=== PATIENT | male | born 1945 | race African-American/Black ===

== ENCOUNTER 2016-11-25 16:09 | Emergency (ER) | payer MEDICARE, MEDICAID ==
[~2016-11-25] VITALS: Ht 185.4 cm; Wt 97.0 kg
[~2016-11-25 16:09] MED LIST: AMIO100T4 PO; ASPI-1035 PO; ATROVASTATIN PO; DIGO0.25 PO; FISH PO; [UNRECOGNIZED DRUG - OTHER]; [UNRECOGNIZED DRUG - OTHER] PO
[2016-11-25] MEDS ORDERED: ACETAMINOPHEN 650MG/20.3ML UDC PO ONE (18:45)
[2016-11-25 20:15] VITALS: BP 137/80
== END 2016-11-25 20:18 | disposition home or self-care (01) ==
LOC: ER 18:17
DX: J02.9 Acute pharyngitis, unspecified (principal); E78.00 Pure hypercholesterolemia, unspecified; I11.9 Hypertensive heart disease without heart failure; I25.2 Old myocardial infarction; Z87.891 Personal history of nicotine dependence; Z79.82 Long term (current) use of aspirin; Z88.0 Allergy status to penicillin; Z86.73 Personal history of transient ischemic attack (TIA), and cerebral infarction without residual deficits
CPT/HCPCS: 99282

== ENCOUNTER 2019-09-11 10:47 | Inpatient (IN) | payer MEDICARE, MEDICAID ==
[~2019-09-11] VITALS: Ht 182.9 cm; Wt 92.5 kg
[~2019-09-11 10:47] MED LIST changes: -ASPI-1035 PO; +ASPI-1158 PO
[2019-09-11 12:44] LABS: BASOPHILS % 0.2 % (0.0-2.0); EOSINOPHILS % 0.3 % (0.0-5.0); HEMATOCRIT. 43.1 % (42.0-52.0); HEMOGLOBIN. 14.3 g/dL (14.0-18.0); LYMPHOCYTES % 10.2 % (20.0-50.0); MEAN CORPUSCULAR HEMOGLOBIN 27.7 pg (28.0-32.0); MEAN CORPUSCULAR VOLUME 83.2 fL (80.0-94.0); MEAN PLATELET VOLUME 8.3 fl (7.4-10.4); MONOCYTES % 11.6 % (2.0-8.0); NEUTROPHILS % 77.7 % (40.0-76.0); PLATELET 164 x1000/uL (130-400); RED BLOOD CELL COUNT 5.18 mill/uL (4.7-6.1); RED CELL DISTRIBUTION WIDTH 15.4 % (11.6-14.6)
[2019-09-11 12:46] LABS: CHLORIDE 95 mEq/L (98-107)
[2019-09-11 12:48] LABS: CLARITY URINE CLOUDY (CLEAR); COLOR URINE ORANGE (YELLOW); KETONES URINE TRACE (NEGATIVE); LEUKOCYTE ESTERASE URINE TRACE (NEGATIVE); NITRITE URINE NEGATIVE (NEGATIVE); OCCULT BLOOD URINE NEGATIVE (NEGATIVE); PROTEIN URINE 2+ (NEGATIVE); SPECIFIC GRAVITY URINE 1.026 (1.005-1.030)
[2019-09-11 13:16] LABS: *AMPHETAMINES SCREEN URINE NEGATIVE (NEGATIVE); *BARBITURATES SCREEN URINE NEGATIVE (NEGATIVE); *BENZODIAZEPINES SCREEN URINE NEGATIVE (NEGATIVE); *COCAINE SCREEN URINE NEGATIVE (NEGATIVE)
[2019-09-11 13:17] LABS: CANNABINOID URINE SCREEN NEGATIVE (NEGATIVE); METHADONE URINE SCREEN NEGATIVE (NEGATIVE); OPIATES URINE SCREEN PRESUMTIVE POSITIVE (NEGATIVE); PHENCYCLIDINE URINE SCREEN NEGATIVE (NEGATIVE)
[2019-09-11] MEDS ORDERED: ASPIRIN 81MG EC TABLET PO NR (15:15)
[2019-09-11] MEDS ORDERED: GUAIFENESIN 200MG/10ML SUGAR FREE UDC PO PRN (15:30)
[2019-09-11] MEDS ORDERED: IPRATROPIUM/ALBUTEROL 0.5-3(2.5)MG/3ML NEB HHN PRN (15:30)
[2019-09-11] MEDS ORDERED: ONDANSETRON HCL 4MG/2ML INJ IV PRN (15:30)
[2019-09-11] MEDS ORDERED: CLONIDINE 0.1MG TABLET PO PRN (15:30)
[2019-09-11 16:09] LABS: PHOSPHORUS 2.8 mg/dL (2.5-4.9)
[2019-09-11 17:15] VITALS: BP 130/79
[2019-09-11] MEDS: ENOXAPARIN 40MG/0.4ML SYR SUBCUT SCH (17:38)
[2019-09-11] MEDS: CARVEDILOL 6.25 MG TABLET PO SCH (17:38)
[2019-09-11] MEDS: FUROSEMIDE 100MG/10ML VIAL IVP SCH (18:54)
[2019-09-11 20:30] VITALS: BP 108/74
[2019-09-12 00:18] VITALS: BP 107/65
[2019-09-12 04:00] VITALS: BP 103/67
[2019-09-12 06:54] LABS: CHLORIDE 94 mEq/L (98-107)
[2019-09-12 07:02] LABS: BASOPHILS % 0.2 % (0.0-2.0); EOSINOPHILS % 0.6 % (0.0-5.0); HEMATOCRIT. 40.5 % (42.0-52.0); HEMOGLOBIN. 13.4 g/dL (14.0-18.0); LYMPHOCYTES % 17.7 % (20.0-50.0); MEAN CORPUSCULAR HEMOGLOBIN 27.6 pg (28.0-32.0); MEAN CORPUSCULAR VOLUME 83.2 fL (80.0-94.0); MEAN PLATELET VOLUME 8.8 fl (7.4-10.4); MONOCYTES % 9.4 % (2.0-8.0); NEUTROPHILS % 72.1 % (40.0-76.0); PLATELET 172 x1000/uL (130-400); RED BLOOD CELL COUNT 4.87 mill/uL (4.7-6.1); RED CELL DISTRIBUTION WIDTH 15.4 % (11.6-14.6)
[2019-09-12 07:03] LABS: LDL CHOLESTEROL 67 mg/dL (5-100)
[2019-09-12 07:05] LABS: HDL CHOLESTEROL 32 mg/dL (40-59)
[2019-09-12 08:09] VITALS: BP 105/69
[2019-09-12] MEDS: AMLODIPINE 2.5MG TABLET PO SCH (09:00)
[2019-09-12] MEDS: CARVEDILOL 6.25 MG TABLET PO SCH ×2 (09:00→17:00)
[2019-09-12] MEDS ORDERED: POTASSIUM CHLORIDE 20MEQ TABLET SR PO NR ×2 (09:15→18:00)
[2019-09-12] MEDS: POTASSIUM CHLORIDE 20MEQ TABLET SR PO SCH (09:27)
[2019-09-12] MEDS: FUROSEMIDE 100MG/10ML VIAL IVP SCH ×2 (09:29→17:43)
[2019-09-12 12:00] VITALS: BP 98/61
[2019-09-12 16:00] VITALS: BP 96/69
[2019-09-12] MEDS: ENOXAPARIN 40MG/0.4ML SYR SUBCUT SCH (17:42)
[2019-09-12 20:00] VITALS: BP 99/60
[2019-09-13] VITALS: BP 99/77
[2019-09-13 04:00] VITALS: BP 99/60
[2019-09-13 06:21] LABS: BASOPHILS % 0.5 % (0.0-2.0); EOSINOPHILS % 0.9 % (0.0-5.0); HEMATOCRIT. 41.4 % (42.0-52.0); LYMPHOCYTES % 21.3 % (20.0-50.0); MEAN CORPUSCULAR HEMOGLOBIN 27.9 pg (28.0-32.0); MEAN CORPUSCULAR VOLUME 82.8 fL (80.0-94.0); MEAN PLATELET VOLUME 8.2 fl (7.4-10.4); MONOCYTES % 10.8 % (2.0-8.0); NEUTROPHILS % 66.5 % (40.0-76.0); PLATELET 211 x1000/uL (130-400); RED CELL DISTRIBUTION WIDTH 15.4 % (11.6-14.6)
[2019-09-13] MEDS: FUROSEMIDE 100MG/10ML VIAL IVP SCH ×2 (06:32→17:16)
[2019-09-13 06:42] LABS: CHLORIDE 95 mEq/L (98-107)
[2019-09-13 08:00] VITALS: BP 94/50
[2019-09-13] MEDS: CARVEDILOL 6.25 MG TABLET PO SCH ×2 (09:00→16:35)
[2019-09-13] MEDS: ACETAMINOPHEN 325MG TABLET PO PRN ×2 (09:39→20:00)
[2019-09-13] MEDS: POTASSIUM CHLORIDE 20MEQ TABLET SR PO SCH (09:39)
[2019-09-13 12:00] VITALS: BP 101/68
[2019-09-13] MEDS: AMLODIPINE 2.5MG TABLET PO SCH (12:30)
[2019-09-13 16:00] VITALS: BP 95/69
[2019-09-13] MEDS: ENOXAPARIN 40MG/0.4ML SYR SUBCUT SCH (17:15)
[2019-09-13 20:29] VITALS: BP 94/54
[2019-09-14] VITALS: BP 95/63
[2019-09-14 04:00] VITALS: BP 99/65
[2019-09-14 06:17] LABS: CHLORIDE 94 mEq/L (98-107)
[2019-09-14 06:21] LABS: BASOPHILS % 0.6 % (0.0-2.0); EOSINOPHILS % 1.2 % (0.0-5.0); HEMATOCRIT. 40.7 % (42.0-52.0); HEMOGLOBIN. 13.7 g/dL (14.0-18.0); LYMPHOCYTES % 25.4 % (20.0-50.0); MEAN CORPUSCULAR HEMOGLOBIN 27.8 pg (28.0-32.0); MEAN CORPUSCULAR VOLUME 82.5 fL (80.0-94.0); MONOCYTES % 9.1 % (2.0-8.0); NEUTROPHILS % 63.7 % (40.0-76.0); PLATELET 227 x1000/uL (130-400); RED BLOOD CELL COUNT 4.93 mill/uL (4.7-6.1); RED CELL DISTRIBUTION WIDTH 15.3 % (11.6-14.6)
[2019-09-14] MEDS: FUROSEMIDE 100MG/10ML VIAL IVP SCH (06:23)
[2019-09-14] MEDS: POTASSIUM CHLORIDE 20MEQ TABLET SR PO SCH (07:57)
[2019-09-14] MEDS: AMLODIPINE 2.5MG TABLET PO SCH (07:58)
[2019-09-14 08:00] VITALS: BP 106/76
[2019-09-14] MEDS: CARVEDILOL 6.25 MG TABLET PO SCH ×2 (09:00→16:38)
[2019-09-14] MEDS: ACETAMINOPHEN 325MG TABLET PO PRN ×2 (10:11→21:30)
[2019-09-14 12:00] VITALS: BP 93/60
[2019-09-14 16:00] VITALS: BP 100/64
[2019-09-14] MEDS: FUROSEMIDE 40MG/4ML VIAL IV SCH (17:21)
[2019-09-14] MEDS: ENOXAPARIN 40MG/0.4ML SYR SUBCUT SCH (17:21)
[2019-09-14 20:14] VITALS: BP 103/67
[2019-09-15] VITALS (8 sets, daily range): BP systolic 92–109; BP diastolic 48–69
[2019-09-15 05:57] LABS: CHLORIDE 92 mEq/L (98-107)
[2019-09-15 06:05] LABS: BASOPHILS % 0.5 % (0.0-2.0); EOSINOPHILS % 0.8 % (0.0-5.0); HEMOGLOBIN. 13.9 g/dL (14.0-18.0); LYMPHOCYTES % 28.5 % (20.0-50.0); MEAN CORPUSCULAR HEMOGLOBIN 27.4 pg (28.0-32.0); MEAN CORPUSCULAR VOLUME 82.8 fL (80.0-94.0); MONOCYTES % 8.5 % (2.0-8.0); NEUTROPHILS % 61.7 % (40.0-76.0); PLATELET 260 x1000/uL (130-400); RED BLOOD CELL COUNT 5.07 mill/uL (4.7-6.1)
[2019-09-15] MEDS: FUROSEMIDE 40MG/4ML VIAL IV SCH ×2 (06:15→17:20)
[2019-09-15] MEDS: AMLODIPINE 2.5MG TABLET PO SCH (08:53)
[2019-09-15] MEDS: CARVEDILOL 6.25 MG TABLET PO SCH (08:53)
[2019-09-15] MEDS: POTASSIUM CHLORIDE 20MEQ TABLET SR PO SCH (08:54)
[2019-09-15] MEDS ORDERED: POTASSIUM CHLORIDE 20MEQ/PACKET PO NR (12:15)
[2019-09-15] MEDS: ENOXAPARIN 40MG/0.4ML SYR SUBCUT SCH (17:20)
[2019-09-15] MEDS: CARVEDILOL 3.125 MG TABLET PO SCH (20:31)
[2019-09-15] MEDS: ACETAMINOPHEN 325MG TABLET PO PRN (21:53)
[2019-09-16 04:00] VITALS: BP 105/71
[2019-09-16 06:21] LABS: CHLORIDE 93 mEq/L (98-107)
[2019-09-16 06:28] LABS: BASOPHILS % 0.7 % (0.0-2.0); EOSINOPHILS % 0.7 % (0.0-5.0); HEMATOCRIT. 40.6 % (42.0-52.0); HEMOGLOBIN. 13.5 g/dL (14.0-18.0); LYMPHOCYTES % 28.6 % (20.0-50.0); MEAN CORPUSCULAR HEMOGLOBIN 27.7 pg (28.0-32.0); MEAN CORPUSCULAR VOLUME 83.4 fL (80.0-94.0); MEAN PLATELET VOLUME 7.9 fl (7.4-10.4); MONOCYTES % 8.2 % (2.0-8.0); NEUTROPHILS % 61.8 % (40.0-76.0); PLATELET 284 x1000/uL (130-400); RED BLOOD CELL COUNT 4.87 mill/uL (4.7-6.1); RED CELL DISTRIBUTION WIDTH 15.4 % (11.6-14.6)
[2019-09-16] MEDS: FUROSEMIDE 40MG/4ML VIAL IV SCH (06:31)
[2019-09-16 08:06] VITALS: BP 98/63
[2019-09-16] MEDS: CARVEDILOL 3.125 MG TABLET PO SCH (09:00)
[2019-09-16] MEDS: AMLODIPINE 2.5MG TABLET PO SCH (09:00)
[2019-09-16] MEDS: POTASSIUM CHLORIDE 20MEQ TABLET SR PO SCH (09:10)
[2019-09-16] MEDS ORDERED: POTA20TA82 PO (10:33)
[2019-09-16] MEDS ORDERED: AMIO100T4 MT (10:33)
[2019-09-16] MEDS ORDERED: COR3 PO (10:33)
[2019-09-16] MEDS ORDERED: FURO40TA5 PO (10:33)
[2019-09-16 12:10] VITALS: BP 98/63
[2019-09-16 12:23] VITALS: BP 102/71
[2019-09-16] MEDS ORDERED: FUROSEMIDE 40MG TABLET PO SCH (21:00)
== END 2019-09-16 12:40 | disposition home or self-care (01) | DRG 291 ==
LOC: ER 10:47 → EDBEDREQ 14:47 → ENRESERV 15:49 → 6WST 17:04
PROVIDERS: ADMIT Internal Medicine; ATTEND Internal Medicine
DX: I11.0 Hypertensive heart disease with heart failure (principal); J96.00 Acute respiratory failure, unspecified whether with hypoxia or hypercapnia; J18.9 Pneumonia, unspecified organism; J44.0 Chronic obstructive pulmonary disease with (acute) lower respiratory infection; R04.2 Hemoptysis; I50.23 Acute on chronic systolic (congestive) heart failure; I42.0 Dilated cardiomyopathy; E87.6 Hypokalemia; E78.00 Pure hypercholesterolemia, unspecified; I34.0 Nonrheumatic mitral (valve) insufficiency; E05.90 Thyrotoxicosis, unspecified without thyrotoxic crisis or storm; R07.89 Other chest pain; E78.5 Hyperlipidemia, unspecified; I45.10 Unspecified right bundle-branch block; F17.220 Nicotine dependence, chewing tobacco, uncomplicated; T50.2X5A Adverse effect of carbonic-anhydrase inhibitors, benzothiadiazides and other diuretics, initial encounter; Z59.0 Homelessness; Z95.810 Presence of automatic (implantable) cardiac defibrillator; Z88.0 Allergy status to penicillin; Z79.82 Long term (current) use of aspirin; Z79.899 Other long term (current) drug therapy; I25.2 Old myocardial infarction; Y92.89 Other specified places as the place of occurrence of the external cause; Z86.73 Personal history of transient ischemic attack (TIA), and cerebral infarction without residual deficits
CPT/HCPCS: 36415; 71045; 71250; 80048; 80053; 80061; 80305; 81003; 82140; 82962; 83735; 83880; 84100; 84484; 85025; 87070; 87077; 87186; 93005; 93306; 93970; J1650; J1940

== ENCOUNTER 2019-10-05 10:36 | Inpatient (IN) | payer MEDICARE, MEDICAID ==
[~2019-10-05] VITALS: Ht 185.4 cm; Wt 94.8 kg
[~2019-10-05 10:36] MED LIST changes: +AMIO100T4 MT; -AMIO100T4 PO; +COR3 PO; -DIGO0.25 PO; +FURO40TA5 PO; +POTA20TA82 PO; -[UNRECOGNIZED DRUG - OTHER] PO
[2019-10-05] MEDS ORDERED: ASPIRIN 81MG TABLET PO ONE (11:00)
[2019-10-05 12:19] LABS: BASOPHILS % 0.8 % (0.0-2.0); EOSINOPHILS % 0.6 % (0.0-5.0); HEMATOCRIT. 41.3 % (42.0-52.0); HEMOGLOBIN. 13.7 g/dL (14.0-18.0); LYMPHOCYTES % 46.8 % (20.0-50.0); MEAN CORPUSCULAR HEMOGLOBIN 27.5 pg (28.0-32.0); MEAN CORPUSCULAR VOLUME 83.1 fL (80.0-94.0); MEAN PLATELET VOLUME 8.2 fl (7.4-10.4); MONOCYTES % 11.1 % (2.0-8.0); NEUTROPHILS % 40.7 % (40.0-76.0); PLATELET 136 x1000/uL (130-400); RED BLOOD CELL COUNT 4.97 mill/uL (4.7-6.1); RED CELL DISTRIBUTION WIDTH 16.7 % (11.6-14.6)
[2019-10-05 12:24] LABS: INR 1.1; PARTIAL THROMBOPLASTIN TIME 27.5 sec (23.4-31.0); PROTHROMBIN TIME 11.4 sec (9.6-11.0)
[2019-10-05 12:26] LABS: CHLORIDE 103 mEq/L (98-107)
[2019-10-05] MEDS ORDERED: ENOXAPARIN 100MG/ML SYR SUBCUT ONE (14:45)
[2019-10-05] MEDS ORDERED: NITROGLYCERIN 0.4MG TABLET SL SL PRN (16:15)
[2019-10-05] MEDS ORDERED: ACETAMINOPHEN 325MG TABLET PO PRN (16:15)
[2019-10-05] MEDS ORDERED: ONDANSETRON HCL 4MG/2ML INJ IV PRN (16:15)
[2019-10-05 21:15] VITALS: BP 104/71
[2019-10-05 22:00] VITALS: BP 97/60
[2019-10-06] VITALS (12 sets, daily range): BP systolic 90–141; BP diastolic 58–69
[2019-10-06] MEDS: ASPIRIN 81MG TABLET PO SCH (08:50)
[2019-10-06] MEDS: ENOXAPARIN 40MG/0.4ML SYR SUBCUT SCH (08:50)
[2019-10-06] MEDS: AMIODARONE HCL 200 MG TABLET PO SCH ×2 (10:38→21:50)
[2019-10-06] MEDS: FUROSEMIDE 40MG/4ML VIAL IVP SCH (10:38)
[2019-10-06] MEDS ORDERED: ATORVASTATIN CALCIUM 10MG TABLET PO SCH (21:00)
[2019-10-06] MEDS: CARVEDILOL 3.125 MG TABLET PO SCH (21:00)
[2019-10-07] VITALS (8 sets, daily range): BP systolic 91–127; BP diastolic 53–65
[2019-10-07 07:15] LABS: BASOPHILS % 0.6 % (0.0-2.0); EOSINOPHILS % 0.5 % (0.0-5.0); HEMATOCRIT. 38.3 % (42.0-52.0); HEMOGLOBIN. 12.8 g/dL (14.0-18.0); LYMPHOCYTES % 43.3 % (20.0-50.0); MEAN CORPUSCULAR HEMOGLOBIN 27.3 pg (28.0-32.0); MEAN CORPUSCULAR VOLUME 81.9 fL (80.0-94.0); MEAN PLATELET VOLUME 8.2 fl (7.4-10.4); MONOCYTES % 11.4 % (2.0-8.0); NEUTROPHILS % 44.2 % (40.0-76.0); PLATELET 114 x1000/uL (130-400); RED BLOOD CELL COUNT 4.68 mill/uL (4.7-6.1); RED CELL DISTRIBUTION WIDTH 16.1 % (11.6-14.6)
[2019-10-07 07:25] LABS: CHLORIDE 104 mEq/L (98-107)
[2019-10-07] MEDS: CARVEDILOL 3.125 MG TABLET PO SCH (08:25)
[2019-10-07] MEDS: ASPIRIN 81MG TABLET PO SCH (08:25)
[2019-10-07] MEDS: AMIODARONE HCL 200 MG TABLET PO SCH (08:26)
[2019-10-07] MEDS: ENOXAPARIN 40MG/0.4ML SYR SUBCUT SCH (08:26)
[2019-10-07] MEDS ORDERED: AMLODIPINE 2.5MG TABLET PO SCH (09:00)
[2019-10-07] MEDS: FUROSEMIDE 40MG/4ML VIAL IVP SCH (10:00)
[2019-10-07] MEDS ORDERED: AMLO2.5T45 PO (11:59)
[2019-10-07] MEDS ORDERED: ATOR10TA PO (11:59)
[2019-10-07] MEDS ORDERED: AMI2 PO (11:59)
== END 2019-10-07 13:11 | disposition home or self-care (01) | DRG 293 ==
LOC: ER 10:36 → ENRESERV 19:21 → 3WST 20:57
PROVIDERS: ADMIT Internal Medicine; ATTEND Internal Medicine
DX: I11.0 Hypertensive heart disease with heart failure (principal); I50.23 Acute on chronic systolic (congestive) heart failure; I42.0 Dilated cardiomyopathy; I34.0 Nonrheumatic mitral (valve) insufficiency; R79.89 Other specified abnormal findings of blood chemistry; J44.9 Chronic obstructive pulmonary disease, unspecified; E78.5 Hyperlipidemia, unspecified; R07.9 Chest pain, unspecified; Z95.810 Presence of automatic (implantable) cardiac defibrillator; Z86.73 Personal history of transient ischemic attack (TIA), and cerebral infarction without residual deficits; Z82.3 Family history of stroke; Z59.0 Homelessness; Z82.49 Family history of ischemic heart disease and other diseases of the circulatory system; Z88.0 Allergy status to penicillin; Z79.899 Other long term (current) drug therapy; Z79.82 Long term (current) use of aspirin
CPT/HCPCS: 36415; 71045; 80048; 80053; 83735; 83880; 84484; 85025; 93005; 99291; J1650; J1940

== ENCOUNTER 2020-09-12 16:33 | Emergency (ER) | payer MEDICARE, MEDICAID ==
[~2020-09-12] VITALS: Ht 182.9 cm; Wt 93.6 kg
[~2020-09-12 16:33] MED LIST changes: +AMI2 PO; -AMIO100T4 MT; +AMLO2.5T45 PO; -ASPI-1158 PO; +ASPI-1406 PO; +ATOR10TA PO; -ATROVASTATIN PO
[2020-09-12] MEDS ORDERED: MAGNESIUM/ALUMINUM HYDROXIDE/SIMETHICONE 30ML UDC PO STA (17:49)
[2020-09-12 19:08] VITALS: BP 92/50
[2020-09-12 19:18] LABS: BASOPHILS % 0.7 % (0.0-2.0); EOSINOPHILS % 0.8 % (0.0-5.0); HEMATOCRIT. 35.3 % (42.0-52.0); HEMOGLOBIN. 11.4 g/dL (14.0-18.0); LYMPHOCYTES % 35.6 % (20.0-50.0); MEAN CORPUSCULAR HEMOGLOBIN 27.3 pg (28.0-32.0); MEAN CORPUSCULAR VOLUME 84.6 fL (80.0-94.0); MEAN PLATELET VOLUME 8.8 fl (7.4-10.4); MONOCYTES % 12.9 % (2.0-8.0); PLATELET 129 x1000/uL (130-400); RED BLOOD CELL COUNT 4.17 mill/uL (4.7-6.1); RED CELL DISTRIBUTION WIDTH 16.7 % (11.6-14.6)
[2020-09-12 19:21] LABS: CHLORIDE 109 mEq/L (98-107)
== END 2020-09-12 20:09 | disposition left against medical advice (07) ==
LOC: ER 16:33
DX: R10.33 Periumbilical pain (principal); I48.91 Unspecified atrial fibrillation; Z86.73 Personal history of transient ischemic attack (TIA), and cerebral infarction without residual deficits; Z95.0 Presence of cardiac pacemaker; Z79.82 Long term (current) use of aspirin; Z88.0 Allergy status to penicillin; Z79.899 Other long term (current) drug therapy
CPT/HCPCS: 36415; 80053; 84484; 85025; 93005; 99284

== ENCOUNTER 2020-10-07 16:59 | Emergency (ER) | payer MEDICARE, MEDICAID ==
[~2020-10-07] VITALS: Ht 172.7 cm; Wt 78.0 kg
[2020-10-07 19:23] LABS: HEMATOCRIT. 35.6 % (42.0-52.0); HEMOGLOBIN. 11.6 g/dL (14.0-18.0); MEAN CORPUSCULAR HEMOGLOBIN 26.9 pg (28.0-32.0); MEAN CORPUSCULAR VOLUME 82.4 fL (80.0-94.0); MEAN PLATELET VOLUME 8.7 fl (7.4-10.4); PLATELET 157 x1000/uL (130-400); RED BLOOD CELL COUNT 4.31 mill/uL (4.7-6.1); RED CELL DISTRIBUTION WIDTH 17.1 % (11.6-14.6)
[2020-10-07 19:30] LABS: CHLORIDE 108 mEq/L (98-107)
[2020-10-07 19:31] LABS: INR 1.2; PARTIAL THROMBOPLASTIN TIME 27.9 sec (23.4-31.0); PROTHROMBIN TIME 13.1 sec (9.6-11.0)
[2020-10-07 19:45] VITALS: BP 99/64
[2020-10-07 19:45] LABS: PLATELET ESTIMATE NORMAL
== END 2020-10-07 20:00 | disposition left against medical advice (07) ==
LOC: ER 16:59
DX: R60.0 Localized edema (principal); I11.0 Hypertensive heart disease with heart failure; I50.9 Heart failure, unspecified; I48.91 Unspecified atrial fibrillation; M19.90 Unspecified osteoarthritis, unspecified site; K21.9 Gastro-esophageal reflux disease without esophagitis; Z86.73 Personal history of transient ischemic attack (TIA), and cerebral infarction without residual deficits; Z79.82 Long term (current) use of aspirin; Z79.01 Long term (current) use of anticoagulants; Z88.0 Allergy status to penicillin; T50.B95A Adverse effect of other viral vaccines, initial encounter; Y92.018 Other place in single-family (private) house as the place of occurrence of the external cause
CPT/HCPCS: 36415; 71045; 80053; 83880; 84484; 85025; 93005; 99285

== ENCOUNTER 2021-09-30 04:41 | Inpatient (IN) | payer MEDICARE, MEDICAID ==
[~2021-09-30] VITALS: Ht 185.4 cm; Wt 97.5 kg
[2021-09-30] MEDS ORDERED: ACETAMINOPHEN 325MG TABLET PO STA (05:45)
[2021-09-30 06:51] LABS: CHLORIDE 107 mEq/L (98-107)
[2021-09-30 06:57] LABS: CLARITY URINE CLEAR (CLEAR); COLOR URINE YELLOW (YELLOW); KETONES URINE NEGATIVE (NEGATIVE); LEUKOCYTE ESTERASE URINE 1+ (NEGATIVE); NITRITE URINE NEGATIVE (NEGATIVE); OCCULT BLOOD URINE NEGATIVE (NEGATIVE); PROTEIN URINE NEGATIVE (NEGATIVE); SPECIFIC GRAVITY URINE 1.024 (1.005-1.030)
[2021-09-30] MEDS ORDERED: IBUPROFEN 600MG TABLET PO NR (08:15)
[2021-09-30 08:32] LABS: BASOPHILS % 0.4 % (0.0-2.0); EOSINOPHILS % 0.1 % (0.0-5.0); HEMATOCRIT. 38.6 % (42.0-52.0); HEMOGLOBIN. 12.8 g/dL (14.0-18.0); MEAN CORPUSCULAR HEMOGLOBIN 29.2 pg (28.0-32.0); MEAN CORPUSCULAR VOLUME 87.8 fL (80.0-94.0); MEAN PLATELET VOLUME 7.4 fl (7.4-10.4); MONOCYTES % 9.7 % (2.0-8.0); NEUTROPHILS % 78.8 % (40.0-76.0); PLATELET 151 x1000/uL (130-400); RED CELL DISTRIBUTION WIDTH 14.8 % (11.6-14.6)
[2021-09-30] MEDS ORDERED: VANCOMYCIN 1G PREMIX 200 ML IV ONE (09:15)
[2021-09-30] MEDS ORDERED: SODIUM CHLORIDE 0.9% 1,000 ML IV ONE (09:15)
[2021-09-30] MEDS ORDERED: PIPERACILLIN/TAZ 3.375G PREMIX 50 ML IV ONE (09:15)
[2021-09-30] MEDS ORDERED: VANCOMYCIN 1GM PMX (XELLIA) 200 ML IV SCH (09:30)
[2021-09-30 09:33] LABS: ETHANOL BLOOD < 10 mg/dL
[2021-09-30 12:00] VITALS: BP 96/46
[2021-09-30] MEDS ORDERED: SODIUM CHLORIDE 0.9% 500 ML IV ONE (12:40)
[2021-09-30] MEDS ORDERED: CEFTRIAXONE 1 G PREMIX 50 ML IV NR (12:45)
[2021-09-30] MEDS: MIDODRINE HCL 5MG TABLET PO SCH ×2 (13:10→18:58)
[2021-09-30 15:38] VITALS: BP 96/46
[2021-09-30 16:00] VITALS: BP 95/49
[2021-09-30 20:00] VITALS: BP 103/64
[2021-10-01 07:35] LABS: BASOPHILS % 0.2 % (0.0-2.0); EOSINOPHILS % 0.3 % (0.0-5.0); HEMATOCRIT. 35.5 % (42.0-52.0); HEMOGLOBIN. 11.8 g/dL (14.0-18.0); LYMPHOCYTES % 9.3 % (20.0-50.0); MEAN CORPUSCULAR HEMOGLOBIN 29.3 pg (28.0-32.0); MEAN PLATELET VOLUME 7.6 fl (7.4-10.4); MONOCYTES % 10.1 % (2.0-8.0); NEUTROPHILS % 80.1 % (40.0-76.0); PLATELET 146 x1000/uL (130-400); RED BLOOD CELL COUNT 4.04 mill/uL (4.7-6.1); RED CELL DISTRIBUTION WIDTH 15.5 % (11.6-14.6)
[2021-10-01 07:51] LABS: CHLORIDE 109 mEq/L (98-107)
[2021-10-01 08:00] VITALS: BP 95/57
[2021-10-01] MEDS ORDERED: CEFTRIAXONE 1,000 MG in DEXTROSE 5% WATER 50 ML IV SCH (09:00)
[2021-10-01] MEDS: CEFTRIAXONE 1,000 MG in DEXTROSE 5% WATER 50 ML IV SCH (09:00)
[2021-10-01] MEDS: MIDODRINE HCL 5MG TABLET PO SCH ×3 (09:00→17:31)
[2021-10-01] MEDS ORDERED: IOHEXOL-350 100 ML BOTTLE ONE (09:53)
[2021-10-01 10:53] LABS: METHADONE URINE SCREEN NEGATIVE (NEGATIVE)
[2021-10-01 10:54] LABS: *AMPHETAMINES SCREEN URINE NEGATIVE (NEGATIVE); *BARBITURATES SCREEN URINE NEGATIVE (NEGATIVE); *BENZODIAZEPINES SCREEN URINE NEGATIVE (NEGATIVE); *COCAINE SCREEN URINE PRESUMTIVE POSITIVE (NEGATIVE)
[2021-10-01 10:55] LABS: CANNABINOID URINE SCREEN NEGATIVE (NEGATIVE); OPIATES URINE SCREEN NEGATIVE (NEGATIVE); PHENCYCLIDINE URINE SCREEN NEGATIVE (NEGATIVE)
[2021-10-01 12:00] VITALS: BP 101/56
[2021-10-01] MEDS: ACETAMINOPHEN 325MG TABLET PO PRN ×2 (12:12→20:10)
[2021-10-01] MEDS: ASPIRIN 81MG TABLET PO SCH (12:12)
[2021-10-01 16:00] VITALS: BP 93/46
[2021-10-01 20:00] VITALS: BP 110/60
[2021-10-02] VITALS: BP 97/32
[2021-10-02 04:00] VITALS: BP 89/46
[2021-10-02 08:00] VITALS: BP 99/49
[2021-10-02 08:11] LABS: BASOPHILS % 0.2 % (0.0-2.0); EOSINOPHILS % 0.9 % (0.0-5.0); HEMATOCRIT. 37.9 % (42.0-52.0); HEMOGLOBIN. 12.3 g/dL (14.0-18.0); LYMPHOCYTES % 10.9 % (20.0-50.0); MEAN CORPUSCULAR HEMOGLOBIN 28.8 pg (28.0-32.0); MEAN CORPUSCULAR VOLUME 88.5 fL (80.0-94.0); MEAN PLATELET VOLUME 7.8 fl (7.4-10.4); MONOCYTES % 10.5 % (2.0-8.0); NEUTROPHILS % 77.5 % (40.0-76.0); PLATELET 143 x1000/uL (130-400); RED BLOOD CELL COUNT 4.28 mill/uL (4.7-6.1); RED CELL DISTRIBUTION WIDTH 15.6 % (11.6-14.6)
[2021-10-02 08:24] LABS: CHLORIDE 111 mEq/L (98-107)
[2021-10-02] MEDS: ASPIRIN 81MG TABLET PO SCH (09:27)
[2021-10-02] MEDS: MIDODRINE HCL 5MG TABLET PO SCH ×3 (09:31→16:35)
[2021-10-02] MEDS: CEFTRIAXONE 1,000 MG in DEXTROSE 5% WATER 50 ML IV SCH (10:34)
[2021-10-02] MEDS: ACETAMINOPHEN 325MG TABLET PO PRN (10:59)
[2021-10-02 12:00] VITALS: BP 106/53
[2021-10-02 16:00] VITALS: BP 115/74
[2021-10-02 20:00] VITALS: BP 95/51
[2021-10-03] VITALS: BP 100/48
[2021-10-03] MEDS: ACETAMINOPHEN 325MG TABLET PO PRN ×2 (03:58→23:41)
[2021-10-03 04:00] VITALS: BP 129/69
[2021-10-03 06:03] LABS: BASOPHILS % 0.5 % (0.0-2.0); EOSINOPHILS % 1.3 % (0.0-5.0); HEMATOCRIT. 36.3 % (42.0-52.0); HEMOGLOBIN. 11.9 g/dL (14.0-18.0); LYMPHOCYTES % 19.6 % (20.0-50.0); MEAN CORPUSCULAR HEMOGLOBIN 28.8 pg (28.0-32.0); MEAN CORPUSCULAR VOLUME 87.5 fL (80.0-94.0); MEAN PLATELET VOLUME 7.8 fl (7.4-10.4); MONOCYTES % 11.7 % (2.0-8.0); NEUTROPHILS % 66.9 % (40.0-76.0); PLATELET 146 x1000/uL (130-400); RED BLOOD CELL COUNT 4.15 mill/uL (4.7-6.1); RED CELL DISTRIBUTION WIDTH 15.5 % (11.6-14.6)
[2021-10-03 07:17] LABS: CHLORIDE 109 mEq/L (98-107)
[2021-10-03 07:51] VITALS: BP 115/69
[2021-10-03] MEDS: CEFTRIAXONE 1,000 MG in DEXTROSE 5% WATER 50 ML IV SCH (09:12)
[2021-10-03] MEDS: MIDODRINE HCL 5MG TABLET PO SCH ×3 (09:13→16:31)
[2021-10-03] MEDS: ASPIRIN 81MG TABLET PO SCH (09:13)
[2021-10-03 16:00] VITALS: BP 104/70
[2021-10-03] MEDS: FUROSEMIDE 40MG/4ML VIAL IVP SCH ×2 (16:31→18:21)
[2021-10-03] MEDS: APIXABAN 5 MG TABLET PO SCH (16:31)
[2021-10-03 20:00] VITALS: BP 115/73
[2021-10-04] VITALS: BP 120/70
[2021-10-04 04:00] VITALS: BP 118/68
[2021-10-04 05:49] LABS: BASOPHILS % 0.3 % (0.0-2.0); HEMOGLOBIN. 13.6 g/dL (14.0-18.0); LYMPHOCYTES % 27.5 % (20.0-50.0); MEAN CORPUSCULAR HEMOGLOBIN 28.9 pg (28.0-32.0); MEAN PLATELET VOLUME 8.1 fl (7.4-10.4); MONOCYTES % 13.6 % (2.0-8.0); NEUTROPHILS % 57.6 % (40.0-76.0); PLATELET 170 x1000/uL (130-400); RED BLOOD CELL COUNT 4.71 mill/uL (4.7-6.1); RED CELL DISTRIBUTION WIDTH 15.1 % (11.6-14.6)
[2021-10-04 06:06] LABS: CHLORIDE 105 mEq/L (98-107)
[2021-10-04] MEDS: FUROSEMIDE 40MG/4ML VIAL IVP SCH (06:26)
[2021-10-04 08:00] VITALS: BP 96/48
[2021-10-04] MEDS: APIXABAN 5 MG TABLET PO SCH (09:35)
[2021-10-04] MEDS: ASPIRIN 81MG TABLET PO SCH (09:35)
[2021-10-04] MEDS: CEFTRIAXONE 1,000 MG in DEXTROSE 5% WATER 50 ML IV SCH (09:35)
[2021-10-04] MEDS: MIDODRINE HCL 5MG TABLET PO SCH ×2 (09:36→12:51)
[2021-10-04] MEDS ORDERED: APIX5TAB PO (11:21)
[2021-10-04 12:00] VITALS: BP 100/74
[2021-10-04 12:58] VITALS: BP 100/74
== END 2021-10-04 15:29 | disposition home health service (06) | DRG 871 ==
LOC: ER 05:04 → 4WST 10:30 → ENRESERV 11:31
PROVIDERS: ADMIT Internal Medicine; ATTEND Internal Medicine
DX: A41.9 Sepsis, unspecified organism (principal); N17.0 Acute kidney failure with tubular necrosis; I50.43 Acute on chronic combined systolic (congestive) and diastolic (congestive) heart failure; I26.99 Other pulmonary embolism without acute cor pulmonale; N39.0 Urinary tract infection, site not specified; I42.9 Cardiomyopathy, unspecified; J98.11 Atelectasis; N18.9 Chronic kidney disease, unspecified; N43.3 Hydrocele, unspecified; N50.3 Cyst of epididymis; K21.9 Gastro-esophageal reflux disease without esophagitis; N44.2 Benign cyst of testis; D64.9 Anemia, unspecified; I45.10 Unspecified right bundle-branch block; M19.90 Unspecified osteoarthritis, unspecified site; I86.1 Scrotal varices; I34.0 Nonrheumatic mitral (valve) insufficiency; I48.91 Unspecified atrial fibrillation; F14.10 Cocaine abuse, uncomplicated; F17.210 Nicotine dependence, cigarettes, uncomplicated; I69.322 Dysarthria following cerebral infarction; I69.320 Aphasia following cerebral infarction; Z59.02 Unsheltered homelessness; Z88.0 Allergy status to penicillin; Z79.01 Long term (current) use of anticoagulants; Z79.899 Other long term (current) drug therapy; Z79.82 Long term (current) use of aspirin; Z71.6 Tobacco abuse counseling; Z95.810 Presence of automatic (implantable) cardiac defibrillator; Z87.440 Personal history of urinary (tract) infections; Z86.718 Personal history of other venous thrombosis and embolism
CPT/HCPCS: 36415; 71045; 71275; 76870; 80048; 80053; 80305; 80320; 81003; 83605; 83735; 83880; 84145; 84484; 85025; 85379; 93005; 93306; 93970; 93976; 99285; C1893; J0696; J1940; J2543; J3370; J7030; J7060; Q9967; G0480

== ENCOUNTER 2021-10-23 14:55 | Emergency (ER) | payer MEDICARE, MEDICAID ==
[~2021-10-23] VITALS: Ht 185.4 cm; Wt 97.0 kg
[~2021-10-23 14:55] MED LIST changes: -AMLO2.5T45 PO; +APIX5TAB PO; -COR3 PO; -[UNRECOGNIZED DRUG - OTHER]
[2021-10-23 17:41] LABS: BASOPHILS % 0.5 % (0.0-2.0); EOSINOPHILS % 0.5 % (0.0-5.0); HEMATOCRIT. 41.7 % (42.0-52.0); HEMOGLOBIN. 13.6 g/dL (14.0-18.0); LYMPHOCYTES % 39.5 % (20.0-50.0); MEAN CORPUSCULAR HEMOGLOBIN 28.9 pg (28.0-32.0); MEAN CORPUSCULAR VOLUME 88.6 fL (80.0-94.0); MEAN PLATELET VOLUME 7.7 fl (7.4-10.4); MONOCYTES % 12.5 % (2.0-8.0); PLATELET 165 x1000/uL (130-400); RED CELL DISTRIBUTION WIDTH 15.7 % (11.6-14.6)
[2021-10-23 17:43] LABS: CLARITY URINE CLEAR (CLEAR); COLOR URINE YELLOW (YELLOW); KETONES URINE NEGATIVE (NEGATIVE); LEUKOCYTE ESTERASE URINE 1+ (NEGATIVE); NITRITE URINE NEGATIVE (NEGATIVE); OCCULT BLOOD URINE NEGATIVE (NEGATIVE); PROTEIN URINE NEGATIVE (NEGATIVE); SPECIFIC GRAVITY URINE 1.015 (1.005-1.030); UROBILINOGEN URINE 0.2 E.U./dL (0.2-1.0)
[2021-10-23 17:45] LABS: CHLORIDE 106 mEq/L (98-107)
[2021-10-23] MEDS ORDERED: SODIUM CHLORIDE 0.9% 1,000 ML IV ONE (20:00)
[2021-10-23 23:30] VITALS: BP 107/56
[2021-10-23] MEDS ORDERED: CLOT15CR5 TP (23:30)
[2021-10-23] MEDS ORDERED: NITR-87 MT (23:32)
== END 2021-10-23 23:43 | disposition home or self-care (01) ==
LOC: ER 14:55
DX: N39.0 Urinary tract infection, site not specified (principal); N48.1 Balanitis; N17.9 Acute kidney failure, unspecified; I48.91 Unspecified atrial fibrillation; D64.9 Anemia, unspecified; I50.9 Heart failure, unspecified; K59.00 Constipation, unspecified; K21.9 Gastro-esophageal reflux disease without esophagitis; Z87.440 Personal history of urinary (tract) infections; Z79.899 Other long term (current) drug therapy; Z88.0 Allergy status to penicillin
CPT/HCPCS: 36415; 80053; 81003; 82962; 85025; 96360; 99283

== ENCOUNTER 2021-11-18 09:17 | Emergency (ER) | payer MEDICARE, MEDICAID ==
[~2021-11-18] VITALS: Ht 185.4 cm; Wt 100.0 kg
[~2021-11-18 09:17] MED LIST changes: +CLOT15CR5 TP; +NITR-87 MT; +POTA-204 PO; -POTA20TA82 PO
[2021-11-18] MEDS ORDERED: HYDROCODONE/ACETAMINOPHEN 5/325MG TABLET PO ONE (10:00)
[2021-11-18 10:24] LABS: BASOPHILS % 0.7 % (0.0-2.0); EOSINOPHILS % 0.2 % (0.0-5.0); HEMATOCRIT. 44.8 % (42.0-52.0); HEMOGLOBIN. 14.7 g/dL (14.0-18.0); LYMPHOCYTES % 18.3 % (20.0-50.0); MEAN CORPUSCULAR HEMOGLOBIN 28.5 pg (28.0-32.0); MEAN CORPUSCULAR VOLUME 87.2 fL (80.0-94.0); MEAN PLATELET VOLUME 7.8 fl (7.4-10.4); MONOCYTES % 10.9 % (2.0-8.0); NEUTROPHILS % 69.9 % (40.0-76.0); PLATELET 171 x1000/uL (130-400); RED BLOOD CELL COUNT 5.14 mill/uL (4.7-6.1); RED CELL DISTRIBUTION WIDTH 15.4 % (11.6-14.6)
[2021-11-18 10:26] VITALS: BP 104/61
[2021-11-18 10:28] LABS: CHLORIDE 106 mEq/L (98-107)
[2021-11-18] MEDS ORDERED: LIDOCAINE HCL/PF 1% 10 MG/ML 5ML VIAL INFIL ONE (11:45)
[2021-11-18] MEDS ORDERED: LIDOCAINE HCL/EPINEPHRINE 1%-EPI 1:100,000 20 ML VIAL INFIL ONE (11:45)
[2021-11-18] MEDS ORDERED: HYDR-4001 MT (12:37)
== END 2021-11-18 12:48 | disposition home or self-care (01) ==
LOC: ER 09:17
DX: M00.9 Pyogenic arthritis, unspecified (principal); I11.0 Hypertensive heart disease with heart failure; I50.9 Heart failure, unspecified; Z88.0 Allergy status to penicillin; Z79.82 Long term (current) use of aspirin; Z86.73 Personal history of transient ischemic attack (TIA), and cerebral infarction without residual deficits; Z98.890 Other specified postprocedural states
CPT/HCPCS: 20605; 36415; 73100; 80053; 85025; 86140; 87040; 87070; 87205; 89050; 89060; 99285; J3490

== ENCOUNTER 2022-01-09 05:10 | Emergency (ER) | payer MEDICARE, MEDICAID ==
[~2022-01-09] VITALS: Ht 185.4 cm; Wt 99.0 kg
[~2022-01-09 05:10] MED LIST changes: +HYDR-4001 MT
[2022-01-09 06:41] LABS: CHLORIDE 103 mEq/L (98-107)
[2022-01-09 06:50] LABS: HEMATOCRIT. 39.1 % (42.0-52.0); MEAN CORPUSCULAR VOLUME 86.9 fL (80.0-94.0); MEAN PLATELET VOLUME 7.8 fl (7.4-10.4); PLATELET 137 x1000/uL (130-400); RED BLOOD CELL COUNT 4.51 mill/uL (4.7-6.1); RED CELL DISTRIBUTION WIDTH 16.2 % (11.6-14.6)
[2022-01-09] MEDS ORDERED: DIAZEPAM 2 MG TABLET PO ONE (07:15)
[2022-01-09 07:25] LABS: PLATELET ESTIMATE NORMAL
[2022-01-09 07:53] LABS: CLARITY URINE CLEAR (CLEAR); COLOR URINE YELLOW (YELLOW); KETONES URINE TRACE (NEGATIVE); LEUKOCYTE ESTERASE URINE TRACE (NEGATIVE); NITRITE URINE NEGATIVE (NEGATIVE); OCCULT BLOOD URINE NEGATIVE (NEGATIVE); PROTEIN URINE TRACE (NEGATIVE); SPECIFIC GRAVITY URINE 1.026 (1.005-1.030)
[2022-01-09] MEDS ORDERED: POTASSIUM CHLORIDE 20MEQ TABLET SR PO ONE (08:30)
[2022-01-09] MEDS ORDERED: ACET-3163 MT (09:07)
[2022-01-09] MEDS ORDERED: NITR-87 MT (09:07)
[2022-01-09 09:22] VITALS: BP 120/69
== END 2022-01-09 09:22 | disposition home or self-care (01) ==
LOC: ER 05:10
DX: N39.0 Urinary tract infection, site not specified (principal); K76.89 Other specified diseases of liver; N28.9 Disorder of kidney and ureter, unspecified; I11.0 Hypertensive heart disease with heart failure; I50.9 Heart failure, unspecified; I25.10 Atherosclerotic heart disease of native coronary artery without angina pectoris; Z86.73 Personal history of transient ischemic attack (TIA), and cerebral infarction without residual deficits; Z79.82 Long term (current) use of aspirin; Z88.0 Allergy status to penicillin
CPT/HCPCS: 36415; 74176; 80053; 81003; 85025; 99284

== ENCOUNTER 2022-02-10 05:39 | Emergency (ER) | payer MEDICARE, MEDICAID ==
[~2022-02-10] VITALS: Ht 185.4 cm; Wt 98.0 kg
[~2022-02-10 05:39] MED LIST changes: +ACET-3163 MT
[2022-02-10 06:11] VITALS: BP 114/78
[2022-02-10] MEDS ORDERED: TETRACAINE 0.5% OPHTH DROPS 4ML LEFTEYE ONE (08:15)
[2022-02-10] MEDS ORDERED: FLUORESCEIN SODIUM 1MG/STRIP LEFTEYE ONE (08:15)
[2022-02-10] MEDS ORDERED: ACETAMINOPHEN 325MG TABLET PO ONE (08:30)
[2022-02-10] MEDS ORDERED: CLINDAMYCIN HCL 150MG CAPSULE PO ONE (08:30)
[2022-02-10] MEDS ORDERED: CLIN-116 MT (08:35)
[2022-02-10] MEDS ORDERED: ACET-2708 MT (08:35)
== END 2022-02-10 09:27 | disposition home or self-care (01) ==
LOC: ER 05:39
DX: H04.302 Unspecified dacryocystitis of left lacrimal passage (principal); Z13.9 Encounter for screening, unspecified
CPT/HCPCS: 99283

== ENCOUNTER 2022-02-11 05:59 | Emergency (ER) | payer MEDICARE, MEDICAID ==
[~2022-02-11] VITALS: Ht 185.4 cm; Wt 98.0 kg
[~2022-02-11 05:59] MED LIST changes: +ACET-2708 MT; +CLIN-116 MT
[2022-02-11 06:08] VITALS: BP 115/61
== END 2022-02-11 07:30 | disposition home or self-care (01) ==
LOC: ER 05:59
DX: H05.012 Cellulitis of left orbit (principal); I25.10 Atherosclerotic heart disease of native coronary artery without angina pectoris; I11.0 Hypertensive heart disease with heart failure; I50.9 Heart failure, unspecified; Z86.73 Personal history of transient ischemic attack (TIA), and cerebral infarction without residual deficits; Z79.82 Long term (current) use of aspirin; Z88.0 Allergy status to penicillin
CPT/HCPCS: 99281

== ENCOUNTER 2022-05-06 13:20 | Emergency (ER) | payer MEDICARE, MEDICAID ==
[~2022-05-06] VITALS: Ht 185.4 cm; Wt 96.0 kg
[2022-05-06 13:43] VITALS: BP 162/109
[2022-05-06] MEDS ORDERED: CLIN-194 MT (14:24)
[2022-05-07] MEDS ORDERED: CLIN-194 MT (10:13)
== END 2022-05-06 14:47 | disposition home or self-care (01) ==
LOC: ER 13:45
DX: L03.313 Cellulitis of chest wall (principal); I69.359 Hemiplegia and hemiparesis following cerebral infarction affecting unspecified side; I11.0 Hypertensive heart disease with heart failure; I50.9 Heart failure, unspecified; I25.10 Atherosclerotic heart disease of native coronary artery without angina pectoris; Z79.82 Long term (current) use of aspirin; Z88.0 Allergy status to penicillin
CPT/HCPCS: 99281

== ENCOUNTER 2022-05-21 15:36 | Emergency (ER) | payer MEDICARE, MEDICAID ==
[~2022-05-21] VITALS: Ht 180.3 cm; Wt 91.0 kg
[~2022-05-21 15:36] MED LIST changes: +CLIN-194 MT
[2022-05-21 16:15] VITALS: BP 112/72
== END 2022-05-22 04:17 | disposition left against medical advice (07) ==
LOC: ER 15:55
DX: H57.12 Ocular pain, left eye (principal); I25.10 Atherosclerotic heart disease of native coronary artery without angina pectoris; I11.0 Hypertensive heart disease with heart failure; I50.9 Heart failure, unspecified; Z86.73 Personal history of transient ischemic attack (TIA), and cerebral infarction without residual deficits; Z79.82 Long term (current) use of aspirin; Z88.0 Allergy status to penicillin
CPT/HCPCS: 99281

== ENCOUNTER 2022-06-24 07:33 | Emergency (ER) | payer MEDICARE, MEDICAID ==
[~2022-06-24] VITALS: Ht 172.7 cm; Wt 65.0 kg
[2022-06-24 09:46] LABS: CLARITY URINE CLEAR (CLEAR); COLOR URINE YELLOW (YELLOW); KETONES URINE NEGATIVE (NEGATIVE); LEUKOCYTE ESTERASE URINE NEGATIVE (NEGATIVE); NITRITE URINE NEGATIVE (NEGATIVE); OCCULT BLOOD URINE NEGATIVE (NEGATIVE); PROTEIN URINE NEGATIVE (NEGATIVE); SPECIFIC GRAVITY URINE 1.012 (1.005-1.030)
[2022-06-24 10:30] VITALS: BP 112/68
== END 2022-06-24 10:36 | disposition home or self-care (01) ==
LOC: ER 07:33
DX: R35.0 Frequency of micturition (principal); I11.0 Hypertensive heart disease with heart failure; I50.9 Heart failure, unspecified; I25.10 Atherosclerotic heart disease of native coronary artery without angina pectoris; Z86.73 Personal history of transient ischemic attack (TIA), and cerebral infarction without residual deficits; F17.210 Nicotine dependence, cigarettes, uncomplicated; Z79.82 Long term (current) use of aspirin; Z88.0 Allergy status to penicillin
CPT/HCPCS: 81003; 99283

== ENCOUNTER 2022-10-03 18:23 | Emergency (ER) | payer MEDICARE, MEDICAID ==
[~2022-10-03] VITALS: Ht 177.8 cm; Wt 73.0 kg
[2022-10-03 18:27] VITALS: BP 127/77
== END 2022-10-03 22:00 | disposition left against medical advice (07) ==
LOC: ER 18:23
DX: Z53.21 Procedure and treatment not carried out due to patient leaving prior to being seen by health care provider (principal)
CPT/HCPCS: 99281

== ENCOUNTER 2022-10-03 23:21 | Emergency (ER) | payer MEDICARE, MEDICAID ==
[~2022-10-03] VITALS: Ht 177.8 cm; Wt 98.4 kg
[2022-10-03 23:35] VITALS: BP 119/76
== END 2022-10-04 00:55 | disposition home or self-care (01) ==
LOC: ER 23:21
DX: L70.9 Acne, unspecified (principal); Z88.0 Allergy status to penicillin
CPT/HCPCS: 99281

== ENCOUNTER 2023-02-26 09:03 | Emergency (ER) | payer MEDICARE, MEDICAID ==
[~2023-02-26] VITALS: Ht 185.4 cm; Wt 97.5 kg
[2023-02-26 09:08] VITALS: PULSE 60
[2023-02-26 09:14] VITALS: O2SAT 96
[2023-02-26 10:12] LABS: BASOPHILS % 0.3 % (0.0-2.0); EOSINOPHILS % 0.6 % (0.0-5.0); LYMPHOCYTES % 34.3 % (20.0-50.0); MEAN CORPUSCULAR HEMOGLOBIN 27.7 pg (28.0-32.0); MEAN CORPUSCULAR HGB CONC 31.7 g/dL (31.0-37.0); MEAN CORPUSCULAR VOLUME 87.3 fL (80.0-94.0); MEAN PLATELET VOLUME 7.6 fl (7.4-10.4); MONOCYTES % 10.7 % (2.0-8.0); NEUTROPHILS % 54.1 % (40.0-76.0); PLATELET 170 x1000/uL (130-400); RED CELL DISTRIBUTION WIDTH 16.9 % (11.6-14.6); WHITE BLOOD COUNT 2.9 x1000/uL (4.5-11.0)
[2023-02-26 10:15] VITALS: TEMP 98.2
[2023-02-26] MEDS: LIDOCAINE 5% PATCH TOP SCH ×2 (10:15→13:14)
[2023-02-26] MEDS ORDERED: ACETAMINOPHEN 325MG TABLET PO ONE (10:15)
[2023-02-26 10:19] LABS: DIFFERENTIAL COMMENT 1
[2023-02-26 10:24] LABS: CLARITY URINE CLEAR (CLEAR); COLOR URINE YELLOW (YELLOW); GLUCOSE URINE NEGATIVE (NEGATIVE); KETONES URINE NEGATIVE (NEGATIVE); LEUKOCYTE ESTERASE URINE NEGATIVE (NEGATIVE); NITRITE URINE NEGATIVE (NEGATIVE); OCCULT BLOOD URINE NEGATIVE (NEGATIVE); PROTEIN URINE NEGATIVE (NEGATIVE); SPECIFIC GRAVITY URINE 1.015 (1.005-1.030)
[2023-02-26 10:25] LABS: CHLORIDE 108 mEq/L (98-107); INDEX HEMOLYSI 1 (1-3); INDEX ICTERIC 1 (1-4); INDEX LIPEMIC 1 (1-3); SODIUM 139 mEq/L (136-145)
[2023-02-26 10:34] LABS: ALANINE AMINOTRANSFERASE 15 IU/L (13-61); ALBUMIN 3.8 g/dL (3.4-5.0); ASPARTATE AMINOTRANSFERASE 19 IU/L (15-37); BILIRUBIN TOTAL 0.7 mg/dL (0.1-1.0); CALCIUM 8.7 mg/dL (8.5-10.1); CARBON DIOXIDE 27 mEq/L (21-32); CREATININE 1.3 mg/dL (0.6-1.3); GLUCOSE 102 mg/dL (70-105); PROTEIN TOTAL 7.1 g/dL (6.0-8.3); UREA NITROGEN BLOOD 13 mg/dL (7-21)
[2023-02-26] MEDS ORDERED: LIDO700A30 TP (12:44)
[2023-02-26 13:14] VITALS: BP 149/79; RESP 16
== END 2023-02-26 13:17 | disposition home or self-care (01) ==
LOC: ER 09:20
DX: M48.07 Spinal stenosis, lumbosacral region (principal); I25.2 Old myocardial infarction; Z88.0 Allergy status to penicillin; Z79.899 Other long term (current) drug therapy; Z98.890 Other specified postprocedural states
CPT/HCPCS: 36415; 74176; 80053; 81003; 85025; 99284

== ENCOUNTER 2023-11-06 12:39 | Inpatient (IN) | payer MEDICARE, MEDICAID ==
[~2023-11-06] VITALS: Ht 185.4 cm; Wt 83.9 kg
[~2023-11-06 12:39] MED LIST changes: +LIDO700A30 TP
[2023-11-06] MEDS: ACETAMINOPHEN 325MG TABLET PO ONE (17:12)
[2023-11-06 18:46] LABS: BASOPHILS % 1.3 % (0.0-2.0); DIFFERENTIAL COMMENT 0; EOSINOPHILS % 0.4 % (0.0-5.0); HEMATOCRIT. 34.5 % (42.0-52.0); HEMOGLOBIN. 11.2 g/dL (14.0-18.0); MEAN CORPUSCULAR HEMOGLOBIN 25.5 pg (28.0-32.0); MEAN CORPUSCULAR HGB CONC 32.5 g/dL (31.0-37.0); MEAN CORPUSCULAR VOLUME 78.4 fL (80.0-94.0); MONOCYTES % 9.9 % (2.0-8.0); NEUTROPHILS % 56.4 % (40.0-76.0); PLATELET 184 x1000/uL (130-400); RED CELL DISTRIBUTION WIDTH 19.3 % (11.6-14.6); WHITE BLOOD COUNT 3.3 x1000/uL (4.5-11.0)
[2023-11-06 18:53] LABS: CARBON DIOXIDE 26 mEq/L (21-32); CHLORIDE 106 mEq/L (98-107); POTASSIUM 4.1 mEq/L (3.5-5.1); SODIUM 138 mEq/L (136-145)
[2023-11-06 18:54] LABS: CALCIUM 9.8 mg/dL (8.7-10.4)
[2023-11-06 18:59] LABS: CREATININE 1.4 mg/dL (0.6-1.3); GLUCOSE 97 mg/dL (70-105); UREA NITROGEN BLOOD 13 mg/dL (9-23)
[2023-11-06 19:00] LABS: ALANINE AMINOTRANSFERASE 27 IU/L (10-49); TROPONIN I HIGH SENSITIVITY 22 ng/L (3.0-53)
[2023-11-06 19:01] LABS: ALBUMIN 4.1 g/dL (3.2-4.8); ASPARTATE AMINOTRANSFERASE 30 IU/L (<34); PROTEIN TOTAL 7.2 g/dL (6.0-8.3)
[2023-11-06] MEDS ORDERED: FUROSEMIDE 40MG/4ML VIAL IVP ONE (19:15)
[2023-11-06] MEDS: FUROSEMIDE 40MG/4ML VIAL IVP NR (21:59)
[2023-11-06] MEDS ORDERED: MAGNESIUM/ALUMINUM HYDROXIDE/SIMETHICONE 30ML UDC PO PRN (22:15)
[2023-11-06] MEDS ORDERED: IPRATROPIUM/ALBUTEROL 0.5-3(2.5)MG/3ML NEB HHN PRN (22:15)
[2023-11-06] MEDS ORDERED: ACETAMINOPHEN 325MG TABLET PO PRN ×2 (22:15)
[2023-11-06] MEDS ORDERED: ONDANSETRON HCL 4MG/2ML INJ IV PRN (22:15)
[2023-11-06 23:28] LABS: INR 1.1; PROTHROMBIN TIME 12.5 sec (9.6-11.0)
[2023-11-07] LABS: CLARITY URINE CLEAR (CLEAR); COLOR URINE YELLOW (YELLOW); GLUCOSE URINE NEGATIVE (NEGATIVE); KETONES URINE NEGATIVE (NEGATIVE); LEUKOCYTE ESTERASE URINE NEGATIVE (NEGATIVE); NITRITE URINE NEGATIVE (NEGATIVE); OCCULT BLOOD URINE NEGATIVE (NEGATIVE); PROTEIN URINE NEGATIVE (NEGATIVE); SPECIFIC GRAVITY URINE 1.006 (1.005-1.030)
[2023-11-07 00:11] LABS: CHLORIDE 106 mEq/L (98-107); POTASSIUM 4.2 mEq/L (3.5-5.1); SODIUM 141 mEq/L (136-145)
[2023-11-07 00:12] LABS: CALCIUM 9.9 mg/dL (8.7-10.4); CARBON DIOXIDE 24 mEq/L (21-32)
[2023-11-07 00:17] LABS: CREATININE 1.5 mg/dL (0.6-1.3); GLUCOSE 96 mg/dL (70-105); UREA NITROGEN BLOOD 14 mg/dL (9-23)
[2023-11-07 00:19] LABS: PHOSPHORUS 3.7 mg/dL (2.5-4.9)
[2023-11-07 00:23] LABS: *AMPHETAMINES SCREEN URINE NEGATIVE (NEGATIVE); *BARBITURATES SCREEN URINE NEGATIVE (NEGATIVE); *BENZODIAZEPINES SCREEN URINE NEGATIVE (NEGATIVE); *COCAINE SCREEN URINE NEGATIVE (NEGATIVE); CANNABINOID URINE SCREEN NEGATIVE (NEGATIVE); METHADONE URINE SCREEN NEGATIVE (NEGATIVE); OPIATES URINE SCREEN NEGATIVE (NEGATIVE); PHENCYCLIDINE URINE SCREEN NEGATIVE (NEGATIVE)
[2023-11-07 00:24] LABS: ECSTASY MDMA SCREEN URINE NEGATIVE (NEGATIVE)
[2023-11-07 01:29] VITALS: BP 104/72; PULSE 67; RESP 18; TEMP 97.8
[2023-11-07 04:00] VITALS: BP 87/53; PULSE 79; RESP 19; TEMP 96.8
[2023-11-07 07:37] LABS: POTASSIUM 4.2 mEq/L (3.5-5.1)
[2023-11-07 07:38] LABS: CALCIUM 9.5 mg/dL (8.7-10.4); CREATINE KINASE MB FRACTION 1.1 ng/mL (0.5-3.6)
[2023-11-07 07:42] LABS: THYROID STIMULATING HORMONE 2.77 uIU/mL (0.55-4.78)
[2023-11-07 07:43] LABS: CREATININE 1.4 mg/dL (0.6-1.3)
[2023-11-07 07:50] LABS: BASOPHILS % 0.6 % (0.0-2.0); EOSINOPHILS % 0.4 % (0.0-5.0); HEMATOCRIT. 34.9 % (42.0-52.0); HEMOGLOBIN. 10.8 g/dL (14.0-18.0); LYMPHOCYTES % 36.8 % (20.0-50.0); MEAN CORPUSCULAR HEMOGLOBIN 25.2 pg (28.0-32.0); MEAN CORPUSCULAR VOLUME 81.3 fL (80.0-94.0); MEAN PLATELET VOLUME 8.7 fl (7.4-10.4); MONOCYTES % 9.2 % (2.0-8.0); PLATELET 97 x1000/uL (130-400); RED BLOOD CELL COUNT 4.29 mill/uL (4.7-6.1); RED CELL DISTRIBUTION WIDTH 19.3 % (11.6-14.6); WHITE BLOOD COUNT 3.1 x1000/uL (4.5-11.0)
[2023-11-07 08:00] VITALS: BP 118/61; PULSE 105; RESP 19; TEMP 97.1
[2023-11-07] MEDS: POTASSIUM CHLORIDE 20MEQ TABLET SR PO SCH (08:55)
[2023-11-07] MEDS: FUROSEMIDE 40MG/4ML VIAL IV SCH (08:55)
[2023-11-07] MEDS: APIXABAN 5 MG TABLET PO SCH (08:55)
[2023-11-07] MEDS: FISH OIL/OMEGA-3 FATTY ACIDS 1000MG CAPSULE PO SCH (08:55)
[2023-11-07] MEDS: AMIODARONE HCL 200 MG TABLET PO SCH (08:55)
[2023-11-07] MEDS: ASPIRIN 81MG EC TABLET PO SCH (08:56)
[2023-11-07 11:49] VITALS: BP 96/64; PULSE 70; RESP 18; TEMP 97
[2023-11-07 16:00] VITALS: BP 108/72; PULSE 93; RESP 18; TEMP 97
[2023-11-07] MEDS: FUROSEMIDE 100MG/10ML VIAL IV SCH (16:53)
[2023-11-07 20:00] VITALS: BP 104/77; PULSE 98; RESP 20; TEMP 97
[2023-11-07] MEDS: ATORVASTATIN CALCIUM 10MG TABLET PO SCH (21:30)
[2023-11-08] VITALS: BP 104/74; PULSE 77; RESP 20; TEMP 97
[2023-11-08 04:00] VITALS: BP 102/67; PULSE 120; RESP 20; TEMP 97.1
[2023-11-08 06:47] LABS: BASOPHILS % 0.7 % (0.0-2.0); DIFFERENTIAL COMMENT 0; EOSINOPHILS % 0.3 % (0.0-5.0); HEMATOCRIT. 32.7 % (42.0-52.0); HEMOGLOBIN. 10.6 g/dL (14.0-18.0); LYMPHOCYTES % 25.4 % (20.0-50.0); MEAN CORPUSCULAR HEMOGLOBIN 25.3 pg (28.0-32.0); MEAN CORPUSCULAR HGB CONC 32.3 g/dL (31.0-37.0); MEAN CORPUSCULAR VOLUME 78.4 fL (80.0-94.0); MEAN PLATELET VOLUME 8.3 fl (7.4-10.4); MONOCYTES % 9.2 % (2.0-8.0); NEUTROPHILS % 64.4 % (40.0-76.0); PLATELET 176 x1000/uL (130-400); RED BLOOD CELL COUNT 4.17 mill/uL (4.7-6.1); RED CELL DISTRIBUTION WIDTH 19.2 % (11.6-14.6)
[2023-11-08 06:57] LABS: CALCIUM 9.3 mg/dL (8.7-10.4); CARBON DIOXIDE 25 mEq/L (21-32); CHLORIDE 105 mEq/L (98-107); POTASSIUM 3.8 mEq/L (3.5-5.1); SODIUM 141 mEq/L (136-145)
[2023-11-08 07:03] LABS: CREATININE 1.3 mg/dL (0.6-1.3); GLUCOSE 92 mg/dL (70-105); UREA NITROGEN BLOOD 14 mg/dL (9-23)
[2023-11-08 08:00] VITALS: BP 99/65; PULSE 72; RESP 18; TEMP 97.2
[2023-11-08] MEDS: AMIODARONE HCL 200 MG TABLET PO SCH (09:00)
[2023-11-08 12:00] VITALS: BP 100/67; PULSE 79; RESP 18; TEMP 98
[2023-11-08] MEDS ORDERED: FURO-151 MT (14:16)
[2023-11-08] MEDS ORDERED: AMI2 PO (14:16)
[2023-11-08] MEDS ORDERED: APIX2.5T MT (14:16)
[2023-11-08 14:42] VITALS: BP 105/70; PULSE 80; TEMP 98; O2SAT 98
[2023-11-08 16:00] VITALS: BP 107/82; PULSE 80; RESP 18; TEMP 98
[2023-11-08] MEDS ORDERED: APIXABAN 2.5 MG TABLET PO SCH (17:00)
[2023-11-09] MEDS ORDERED: FUROSEMIDE 40MG TABLET PO SCH (09:00)
== END 2023-11-08 17:39 | disposition home or self-care (01) | DRG 291 ==
LOC: ER 12:39 → 5WST 19:35 → EDBEDREQTM 19:45 → EDBEDREQ 19:45 → 7WST 11-07 00:38
PROVIDERS: ADMIT Preventive Medicine Clinical Informatics; ATTEND Preventive Medicine Clinical Informatics
DX: I13.0 Hypertensive heart and chronic kidney disease with heart failure and stage 1 through stage 4 chronic kidney disease, or unspecified chronic kidney disease (principal); I50.21 Acute systolic (congestive) heart failure; R17 Unspecified jaundice; D72.819 Decreased white blood cell count, unspecified; H91.10 Presbycusis, unspecified ear; D50.9 Iron deficiency anemia, unspecified; Z79.01 Long term (current) use of anticoagulants; E78.5 Hyperlipidemia, unspecified; Z79.82 Long term (current) use of aspirin; Z95.810 Presence of automatic (implantable) cardiac defibrillator; Z88.0 Allergy status to penicillin; Z86.718 Personal history of other venous thrombosis and embolism; Z82.49 Family history of ischemic heart disease and other diseases of the circulatory system; Z83.3 Family history of diabetes mellitus; L50.9 Urticaria, unspecified; Z79.899 Other long term (current) drug therapy; I69.328 Other speech and language deficits following cerebral infarction; I69.320 Aphasia following cerebral infarction; I45.10 Unspecified right bundle-branch block; E11.22 Type 2 diabetes mellitus with diabetic chronic kidney disease; N18.9 Chronic kidney disease, unspecified
CPT/HCPCS: 36415; 71045; 80048; 80053; 80061; 80305; 81003; 82550; 82553; 83735; 83880; 84100; 84443; 84484; 85025; 93005; 93306; 93970; 99285; J1940

== ENCOUNTER 2023-12-21 08:59 | Emergency (ER) | payer MEDICARE, MEDICAID ==
[~2023-12-21] VITALS: Ht 177.8 cm; Wt 82.0 kg
[~2023-12-21 08:59] MED LIST changes: -ACET-2708 MT; -ACET-3163 MT; +APIX2.5T MT; -APIX5TAB PO; -CLIN-116 MT; -CLIN-194 MT; -CLOT15CR5 TP; +FURO-151 MT; -FURO40TA5 PO; -HYDR-4001 MT; -LIDO700A30 TP; -NITR-87 MT
[2023-12-21 09:11] VITALS: O2SAT 97
[2023-12-21] MEDS ORDERED: SULF1TAB48 MT (13:21)
[2023-12-21 13:36] VITALS: BP 143/74; PULSE 80; RESP 18; TEMP 98.7
== END 2023-12-21 13:37 | disposition home or self-care (01) ==
LOC: ER 08:59
DX: S00.36XA Insect bite (nonvenomous) of nose, initial encounter (principal); I25.2 Old myocardial infarction; Z88.0 Allergy status to penicillin; Z86.73 Personal history of transient ischemic attack (TIA), and cerebral infarction without residual deficits; W57.XXXA Bitten or stung by nonvenomous insect and other nonvenomous arthropods, initial encounter; Y93.89 Activity, other specified; Y92.89 Other specified places as the place of occurrence of the external cause; Y99.8 Other external cause status
CPT/HCPCS: 99283